=== PATIENT | female | born 1935 | race Caucasian/White ===

== ENCOUNTER 2018-11-04 00:10 | Day surgery (SDC) | payer MEDICARE, OTHER ==
[~2018-11-04 00:10] MED LIST: CIPR500 PO; HYDACE5; Hydrocodone-Ap1 EA23 PO; LATA.005SO; LATANOPROST2.5 ML OP; LEVSOD100; LEVSOD50 PO; RALO60; RALOXIFENE HCL60 MG PO; SIMBRINZA 1%-0.28 ML OP; TIMDOROPSO OP; Zofran4 MG PO
== END 2018-11-04 14:54 | disposition home or self-care (01) ==
LOC: ATC 00:10
DX: R35.0 Frequency of micturition (principal)
CPT/HCPCS: 51798

== ENCOUNTER → 2018-11-09 | Outpatient (CLI) | payer MEDICARE, OTHER ==
[2018-11-09 16:00] LABS: Source, Urine Clean Catch
[2018-11-09 18:21] LABS: Appearance, Urine Hazy (Clear); Bilirubin, Urine Neg (Neg); Blood, Urine 1+ (Neg); Color, Urine Yellow (P-Yellow); Glucose Qualitative, Urine Neg (Neg); Ketones, Urine Neg (Neg); Leukocyte Esterase, Urine Neg (Neg); Nitrite, Urine Neg (Neg); Protein, Urine Neg (Neg); Specific Gravity, Urine 1.025 (1.003-1.022); Urobilinogen, Urine NORM (Normal)
[2018-11-09 18:44] LABS: Amorphous Light (0-Heavy); Bacteria Mod /hpf; Red Blood Cells, Urine 0-2 /hpf (0-2); Squamous Epithelial Cells Few /hpf (Few)
[2018-11-09 18:45] LABS: Calcium Oxalate Crystals Few /hpf
== END | disposition home or self-care (01) ==
LOC: LAB SHORT 15:58 → LAB 15:58 → EDSTATUS 11-03 19:25 → LAB FUT 11-03 19:25
PROVIDERS: Internal Medicine
DX: N39.0 Urinary tract infection, site not specified (principal)
CPT/HCPCS: 81001; 87086